=== PATIENT | female | born 1945 | race Two or more races ===

== ENCOUNTER 2019-04-28 07:14 | Outpatient (CLI) | payer OTHER ==
[~2019-04-28 07:14] MED LIST: ASA81 MG; ASPIRIN325 MG PO; ATENOLOL50 MG; ATIVAN0.5 MG; CLONAZEPAM1 MG {1, null}; GLIPIZIDE2.5 MG/BOT; GLIPIZIDE5 MG; LEVOTHROID75 MCG; OMEPRAZOLE20 M1; PROZAC10 MG; SEROQUEL XR50 MG; VALSARTAN-HCTZ1 EAC1; ZANTAC150 MG
== END 2019-04-28 07:55 | disposition home or self-care (01) ==
LOC: NUCLEAR 07:14
DX: R07.89 Other chest pain (principal); I25.6 Silent myocardial ischemia; I20.8 Other forms of angina pectoris
CPT/HCPCS: 78452; 93017; A9500; J0153